=== PATIENT | male | born 1960 | race African-American/Black ===

== ENCOUNTER 2020-02-03 10:13 | Observation (INO) | payer SELFPAY ==
[2020-02-03 11:11] LABS: #Basophils 0.1 thou/uL (0.0-0.2); #Eosinphils 0.3 thou/uL (0.0-0.7); #Lymphocytes 1.6 thou/uL (1.20-3.40); #Monocytes 0.6 thou/uL (0.11-0.59); #Neutrophils 3.2 thou/uL (1.40-6.50); %Basophils 1.1 % (0.0-1.0); %Eosinophils 4.8 % (0.0-10.0); %Lymphocytes 27.6 % (21.0-51.0); %Monocytes 10.4 % (0.0-10.0); %Neutrophils 56.1 % (42.0-75.0); Hemoglobin 16.1 g/dL (14.0-18.0); Mean Corpuscular HGB CONC 34.3 g/dL (32.0-36.0); Mean Corpuscular Volume 87.6 fL (78.0-98.0); Mean Platelet Volume 7.8 fL (7.4-10.4); Platelet Count 279 thou/uL (130-400); RBC Distribution Width 12.9 % (11.5-14.5); Red Blood Cell (RBC) Count 5.36 mill/uL (4.70-6.10); White Blood Cell (WBC) Count 5.7 thou/uL (4.8-10.8)
--- NOTE | 2020-02-03 11:19 | RAD ---
XR Chest 1 View Portable HISTORY: Chest pain COMPARISON: None FINDINGS: The heart size is normal. The lungs are well expanded without focal areas of consolidation, pneumothorax or pleural effusions. IMPRESSION: No radiographic evidence of acute cardiopulmonary process.
--- NOTE | 2020-02-03 11:19 | CT ---
CT BRAIN WITHOUT CONTRAST: HISTORY: Dizziness, altered mental status FINDINGS: No evidence of acute infarct, hemorrhage, midline shift or abnormal extra-axial fluid collections is seen. The ventricular size is appropriate and the basilar cisterns are patent. The bony calvarium is intact. The visualized paranasal sinuses are well aerated. Dural calcifications are seen most prom inent in the tentorium. IMPRESSION: No CT evidence of acute intracranial process.
[2020-02-03 11:32] LABS: ALT (SGPT) 21 U/L (8-55); AST (SGOT) 15 U/L (5-34); Alkaline Phosphatase 94 U/L (40-110); Anion Gap 11 mmol/L (10-20); BUN (Urea Nitrogen) 13 mg/dL (8.4-25.7); Bilirubin, Total 0.5 mg/dL (0.2-1.2); Calc. Creatinine Clearance 0 mL/min (70-130); Calcium 9.8 mg/dL (7.8-10.44); Carbon Dioxide 25 mmol/L (22-29); Chloride 106 mmol/L (98-107); Estimated GFR-MDRD Greater than 90; Globulin 3.8 g/dL (2.4-3.5); Glucose 141 mg/dL (70-105); Potassium 3.6 mmol/L (3.5-5.1); Protein, Total 7.8 g/dL (6.0-8.3); Sodium 138 mmol/L (136-145)
[2020-02-03 12:18] LABS: CK (CPK) 148 U/L (30-200); Lipase 34 U/L (8-78)
--- NOTE | 2020-02-03 12:29 | PDOC.HHP ---
Hospitalist HPI - History of Present Illness Dizziness History of Present Illness: PCP: None The patient is a 59-year-old male with no significant past medical history that presents to the emergency department for the above complaint. The patient reports waking in his usual health this morning, however, after standing he felt dizzy. He says that the room was spinning. He denies feeling like he was going to pass out. He says it felt "like a soto". He reports associated numbness to his bilateral upper extremities. He denies any headache, vision changes, slurred speech or loss of coordination of his extremities. He denies any recent fever/illness or neck stiffness. He says this is never happened to him before. He does not take any NSAIDs or recent antibiotics. He has had no recent URI sym ptoms. He reports that he got onto a bus to come to the emergency department, then he felt like he had some chest pain. He says that the chest pain was located "in the center", described as sharp, intermittent, exacerbated and relieved by nothing. He reports that the bus had the air conditioning on high and he thinks the chest pain was more related to it being cold. He denies any associated heart palpitations, lightheadedness or swelling to lower extremities. Denies any shortness of breath, wheezing. No history of DVT/PE. He denies any illicit drug use. He does state that he has been to the medical clinics in the past, and been told his blood pressure readings have been high, stating that sometimes the SBP is in the 200s. He reports that he is never taken any medications because he could not afford them. He denies any abdominal pain, nausea, vomiting, diarrhea. Denies any melena/hematochezia. He denies any dysuria or hematuria. ED Course: VITAL SIGNS MonFeb 03, 2020 10:16 LOUIE Kathleen Sarah BP: 109/57, MAP: 93, Pulse: 94, Resp: 17, Pain: 7, O2 sat: 98 on (Room Air), Time: 02/03/2020 10:16. VITAL SIGNS MonFeb 03, 2020 11:22 LOUIE Olsen Cheryl BP: 131/56, Pulse: 72, Resp: 18, Temp: 98.3 (Oral), Pain: 5, O2 sat: 99 on (Room Air), Time: 02/03/2020 11:22. Medication administration: sodium chloride 0.9 % intravenous 500 mL IV Fluid Infusion Given 10:56 02/03/2020 Hospitalist ROS - Review of Systems All other systems reviewed; all pertinent +/- noted in HPI/Subj - Medication Medications: None Allergies: No known drug allergies Hospitalist History - Past Medical History Source: patient, RN notes reviewed Cardiac: reports: no pertinent history Pulmonary: reports: no pertinent history ENROLLMENT ELIGIBILITY REPRESENTATIVE: reports: no pertinent history Gastrointestinal: reports: no pertinent history - Past Surgical History Past Surgical History: reports: Appendectomy - Family History Family History: reports: cardiac disorder (Father side of the family), cerebrovascular accident (Father side of the family) - Social History Smoking Status: Former smoker Tobacco Type: cigarettes Alcohol: reports: None Drugs: reports: none Living Situation: Roommate Occupation: Does not work currently Activity level: independent ambulation - Exam General Appearance: NAD, awake alert. negative: ill appearing Eye: PERRL, anicteric sclera ENT: normocephalic atraumatic Neck: supple, symmetric, no JVD Heart: RRR, no murmur, no gallops, no rubs, normal peripheral pulses Respiratory: CTAB, no wheezes, no rales, no ronchi, normal chest expansion, no tachypnea Gastrointestinal: soft, non-tender, no bruit, no guarding, no rigidity, distended Extremities: no cyanosis, no edema Skin: no rashes Neurological: cranial nerve grossly intact, no weakness, no focal deficits Neurological - other findings: modified HINTS unremarkable, NIH 1, BUE sensation, no ataxia Musculoskeletal: normal tone, normal strength Psychiatric: normal affect, A&O x 3 Hospitalist Results - Labs Result Diagrams: 02/03/20 10:25 02/03/20 10:25 Lab results: WBC 5.7 thou/uL (4.8-10.8) 02/03/20 10:25 Hgb 16.1 g/dL (14.0-18.0) 02/03/20 10:25 Hct 47.0 % (42.0-52.0) 02/03/20 10:25 MCV 87.6 fL (78.0-98.0) 02/03/20 10:25 Plt Count 279 thou/uL (130-400) 02/03/20 10:25 Neutrophils % 56.1 % (42.0-75.0) 02/03/20 10:25 Sodium 138 mmol/L (136-145) 02/03/20 10:25 Potassium 3.6 mmol/L (3.5-5.1) 02/03/20 10:25 Chloride 106 mmol/L (98-107) 02/03/20 10:25 Carbon Dioxide 25 mmol/L (22-29) 02/03/20 10:25 BUN 13 mg/dL (8.4-25.7) 02/03/20 10:25 Creatinine 0.82 mg/dL (0.7-1.3) 02/03/20 10:25 Glucose 141 mg/dL (70-105) H 02/03/20 10:25 Calcium 9.8 mg/dL (7.8-10.44) 02/03/20 10:25 Total Bilirubin 0.5 mg/dL (0.2-1.2) 02/03/20 10:25 AST 15 U/L (5-34) 02/03/20 10:25 ALT 21 U/L (8-55) 02/03/20 10:25 Alkaline Phosphatase 94 U/L (40-110) 02/03/20 10:25 Creatine Kinase 148 U/L (30-200) 02/03/20 10:25 Troponin I 0.012 ng/mL (< 0.028) 02/03/20 10:25 B-Natriuretic Peptide Less than 10.0 pg/mL (0-100) 02/03/20 10:25 Serum Total Protein 7.8 g/dL (6.0-8.3) 02/03/20 10:25 Albumin 4.0 g/dL (3.5-5.0) 02/03/20 10:25 Lipase 34 U/L (8-78) 02/03/20 10:25 - EKG Interpretation EKG: Normal sinus rhythm left atrial enlargement pulse 87 IL 194 no STEMI. - Radiology Interpretation Chest x-ray Status: report reviewed by me Additional Comment: IMPRESSION: No radiographic evidence of acute cardiopulmonary process. CT scan - head Status: report reviewed by me Additional Comment: IMPRESSION: No CT evidence of acute intracranial process Hospitalist H&P A/P - Problem (1) Dizziness Code(s): R42 - DIZZINESS AND GIDDINESS Status: Acute (2) Chest pain Code(s): R07.9 - CHEST PAIN, UNSPECIFIED Status: Acute (3) Elevated random blood glucose level Code(s): R73.09 - OTHER ABNORMAL GLUCOSE Status: Acute - Plan Plan: 59/M with no significant PMH presents for dizziness. We will admit to the stroke unit, observation status. Expected length of stay less than 2 midnights. Presented tachycardic HR 94, NL BP, RR, SPO2, afebrile. EKG normal sinus rhythm, no ST elevations. CXR no acute process. CT brain no acute process. troponin 0.012, ck 148, DD less than 0.27, BNP less than 10. #Dizziness Rule out posterior stroke. NIH 1, BUE numbness. Order MRI, CD US, echocardiogram Consult neurology and physical therapy Give aspirin and start statin. Check TSH, folate/B12, mag level, UA. Permissive hypertension. Neuro checks. Orthostatic VS. #Chest pain Atypical. Resolved on arrival. Heart score 2. Give aspirin and start statin. Trend troponins, FLP, TSH, mag level Echocardiogram. N.p.o. at midnight Results to determine further clinical course. #Elevated random blood glucose level Presented BG 141. We will check hemoglobin A1c. Lovenox for DVT prophylaxis. Pepcid for GI prophylaxis. Full code. Discussed the case with Dr. Matthews.
[2020-02-03] MEDS ORDERED: Aspirin Chewable 81 MG TAB ONE (12:47)
[2020-02-03] MEDS ORDERED: Labetalol HCl 100 MG/20 ML VIAL SLOW IVP PRN (12:47)
[2020-02-03] MEDS ORDERED: Enalaprilat Dihydrate 1.25 MG/ML VIAL SLOW IVP PRN (12:47)
[2020-02-03] MEDS ORDERED: Nitroglycerin 0.4 MG TAB (25 Tab Bottle) SL PRN (12:49)
[2020-02-03] MEDS ORDERED: Ondansetron ODT 4 MG TAB PO PRN (12:51)
[2020-02-03] MEDS ORDERED: Acetaminophen 325 MG TAB PO PRN (12:51)
[2020-02-03] MEDS ORDERED: Senokot S 8.6-50 MG TAB PO PRN (12:51)
[2020-02-03] MEDS ORDERED: Calcium Carbonate 500 MG ChewTAB PO PRN (12:51)
[2020-02-03] MEDS ORDERED: Aspirin 325 mg Enteric Coated Tablet PO SCH (13:00)
--- NOTE | 2020-02-03 13:44 | MRI ---
MRI BRAIN WITHOUT CONTRAST: Date: 02/03/2020 HISTORY: Dizziness. TIA. FINDINGS: Correlation is made with CT scan from same date. No restricted diffusion is seen. No evidence of infarct, hemorrhage, midline shift, or abnormal extra -axial fluid collections are noted. Multiple foci of T2 prolongation in the periventricular white mat ter are consistent with chronic small vessel ischemic disease. The visualized paranasal sinuses are w ell aerated. There is fluid in the mastoid air cells bilaterally. IMPRESSION: No evidence of acute intracranial process. POS: BRITTANYA
[2020-02-03 15:19] LABS: Troponin I Less than 0.010 ng/mL (< 0.028)
[2020-02-03 17:42] LABS: Troponin I Less than 0.010 ng/mL (< 0.028)
[2020-02-03 17:56] VITALS: BMI 37.7
[2020-02-03] MEDS: Famotidine 20 MG TAB PO SCH (20:38)
[2020-02-03] MEDS: Atorvastatin Calcium 40 MG TAB PO SCH (20:38)
--- NOTE | 2020-02-03 21:37 | ULT ---
Carotid duplex sonogram HISTORY: TIA. Vascular disease. FINDINGS: Right: Minimal plaque. Color and spectral Doppler evaluation, peak systolic velocity of 56 cm/s, and IC to CC ratio 0.5 suggest no hemodynamically significant stenosis within the extracranial left ICA. Antegrade flow within the vertebral artery. Left: Minimal plaque. Color and spectral Doppler evaluation, peak systolic velocity of 63 cm/s, and I C to CC ratio 0.5 suggest no hemodynamically significant stenosis within the extra cranial left ICA. Antegrade flow within the vertebral artery. IMPRESSION : No evidence of significant stenosis.
[2020-02-04 00:21] LABS: Bacteria/HPF None Seen HPF (None Seen); Bilirubin Negative (Negative); Blood, Urine Negative (Negative); Calcium Oxalate Crystals 3+ HPF (None Seen); Clarity Clear (Clear); Glucose, Urine (Dipstick) Normal (Negative); Ketone, Urine Negative (Negative); Leukocyte Negative Leu/uL (Negative); Nitrite Negative (Negative); Protein, Urine (Dipstick) 20 mg/dL (Neg-Trace); RBC/HPF 0-3 HPF (0-3); Specific Gravity, Urine 1.022 (1.002-1.036); Squamous Epithelial 0-3 HPF (0-3); Urobilinogen Normal mg/dL (Less than 2); WBC/HPF 0-3 HPF (0-3); pH, Urine 5.5 (5.0-9.0)
[2020-02-04 04:40] LABS: #Eosinphils 0.3 thou/uL (0.0-0.7); #Monocytes 0.6 thou/uL (0.11-0.59); #Neutrophils 2.4 thou/uL (1.40-6.50); %Basophils 0.9 % (0.0-1.0); %Eosinophils 6.3 % (0.0-10.0); %Lymphocytes 37.2 % (21.0-51.0); %Monocytes 11.1 % (0.0-10.0); %Neutrophils 44.5 % (42.0-75.0); Hemoglobin 15.2 g/dL (14.0-18.0); Mean Corpuscular HGB CONC 33.3 g/dL (32.0-36.0); Mean Corpuscular Volume 90.1 fL (78.0-98.0); Mean Platelet Volume 7.5 fL (7.4-10.4); Platelet Count 232 thou/uL (130-400); RBC Distribution Width 12.8 % (11.5-14.5); Red Blood Cell (RBC) Count 5.07 mill/uL (4.70-6.10); White Blood Cell (WBC) Count 5.3 thou/uL (4.8-10.8)
[2020-02-04 04:57] LABS: Hemoglobin A1c 5.9 % (4.0-6.0)
[2020-02-04 05:03] LABS: Anion Gap 12 mmol/L (10-20); BUN (Urea Nitrogen) 11 mg/dL (8.4-25.7); Calc. Creatinine Clearance 187 mL/min (70-130); Calcium 9.3 mg/dL (7.8-10.44); Carbon Dioxide 23 mmol/L (22-29); Cardiac Risk 3.3 (Less than 4.5); Chloride 106 mmol/L (98-107); Cholesterol 133 mg/dl (< 200 Desired); Estimated GFR-MDRD Greater than 90; Glucose 109 mg/dL (70-105); HDL Cholesterol 40 mg/dL (>60 Neg Risk); LDL Cholesterol, Calculated 83 mg/dL; Potassium 4.1 mmol/L (3.5-5.1); Sodium 137 mmol/L (136-145); Triglycerides 51 mg/dL (Less than 150)
[2020-02-04 05:26] LABS: Thyroid Stimulating Hormone 0.4761 uIU/mL (0.35-4.94)
--- NOTE | 2020-02-04 07:45 | PDOC.HOSPP ---
- Subjective Encounter Date: 02/04/20 Encounter Time: 08:05 Subjective: Patient seen and examined. No new complaints. No overnight events. Denies any chest pain, heart palpitations, SOB. Denies any abdominal pain, N/V/D. Still endorses intermittent BUE numbness, denies any neck pain, previous injury or weakness. Says he is feeling well today. Discussed his BP and starting new medication. Discussed his HA1C and lifestyle changes. Discussed his lipid panel and dietary control. - Objective Vital Signs & Weight: Vital Signs (12 hours) Temp Pulse Resp BP Pulse Ox 02/04/20 07:25 97.9 F 64 17 175/100 H 99 02/04/20 04:37 97.7 F 59 L 20 151/83 H 98 02/04/20 00:05 80 162/89 H Weight Weight 286 lb I&O: 02/03/20 02/04/20 02/05/20 06:59 06:59 06:59 Intake Total 480 Balance 480 Result Diagrams: 02/04/20 04:18 02/04/20 04:18 Hospitalist ROS - Review of Systems Constitutional: denies: fever, chills Respiratory: denies: cough, shortness of breath, hemoptysis Cardiovascular: denies: chest pain, palpitations, edema, light headedness Gastrointestinal: denies: nausea, vomiting, abdominal pain, diarrhea, constipation Genitourinary: denies: dysuria, hematuria Neurological: reports: numbness (BUE intermittent). denies: weakness, incoordination, change in speech - Medication Medications: Active Medications Generic Name Dose Route Start Last Admin Trade Name Freq PRN Reason Stop Dose Admin Atorvastatin Calcium 40 mg 02/03/20 21:00 02/03/20 20:38 Atorvastatin Calcium 40 Mg Tab PO 40 mg HS CHASE Administration Famotidine 20 mg 02/03/20 21:00 02/03/20 20:38 Famotidine 20 Mg Tab PO 20 mg BID CHASE Administration - Exam General Appearance: NAD, awake alert. negative: ill appearing Eye: PERRL, anicteric sclera ENT: normocephalic atraumatic Neck: supple, symmetric Heart: RRR, no murmur, no gallops, no rubs, normal peripheral pulses Respiratory: CTAB, no wheezes, no rales, no ronchi, normal chest expansion, no tachypnea Gastrointestinal: soft, non-tender, non-distended, no bruit, no guarding, no rigidity Extremities: no cyanosis, no edema Skin: no rashes Neurological: cranial nerve grossly intact, normal sensation to touch, no weakness, no focal deficits Musculoskeletal: normal tone, normal strength Psychiatric: normal affect, A&O x 3 Hosp A/P (1) Dizziness Code(s): R42 - DIZZINESS AND GIDDINESS Status: Acute (2) Chest pain Code(s): R07.9 - CHEST PAIN, UNSPECIFIED Status: Acute (3) HTN (hypertension) Code(s): I10 - ESSENTIAL (PRIMARY) HYPERTENSION Status: Acute (4) Elevated random blood glucose level Code(s): R73.09 - OTHER ABNORMAL GLUCOSE Status: Acute (5) Low blood magnesium level Code(s): R79.0 - ABNORMAL LEVEL OF BLOOD MINERAL Status: Acute (6) Obesity (BMI 30-39.9) Code(s): E66.9 - OBESITY, UNSPECIFIED Status: Chronic - Plan 59/M with no significant PMH presents for dizziness. We will admit to the stroke unit, observation status. Expected length of stay less than 2 midnights. Presented tachycardic HR 94, NL BP, RR, SPO2, afebrile. EKG normal sinus rhythm, no ST elevations. CXR no acute process. CT brain no acute process. troponin 0.012, ck 148, DD less than 0.27, BNP less than 10. #Dizziness Rule out posterior stroke. NIH 0 this morning MRI, CD no acute process Neurology and physical therapy consultations pending. Continue ASA and statin Neuro checks. Orthostatic VS. #Chest pain Atypical. Resolved on arrival. Heart score 2. Troponins flat. Does not appear to be cardiac in nature. Continue aspirin and statin. Echocardiogram pending. HH diet. #HTN BP 175/100 this morning. Reports intermittent BUE numbness, asymptomatic at time assessment. Start procardia XL. diet. #Elevated random blood glucose level Presented BG 141. Hemoglobin A1c 5.9. Starting HH diet, discussed prediabetes and lifestyle management. #Low blood magnesium relative, level 1.8. Replace 2gm Mag IVPB #Obesity BMI 37 Dietary and lifestyle changes. Lovenox for DVT prophylaxis. Pepcid for GI prophylaxis. Full code. Discussed the case with Dr. Matthews.
[2020-02-04] MEDS ORDERED: Magnesium 2 GM/50 ML 2 GM in Premix Bag 1 BAG IVPB SCH (08:00)
[2020-02-04] MEDS: NIFEdipine XL 30 MG TAB PO SCH (08:34)
[2020-02-04] MEDS: Famotidine 20 MG TAB PO SCH ×2 (08:34→22:50)
[2020-02-04] MEDS: Enoxaparin Sodium 40 MG/0.4 ML SYRINGE SC SCH (08:34)
[2020-02-04] MEDS ORDERED: FLU VACC QS2020-21(6MOS UP)/PF 60 MCG/0.5 ML SYRINGE IM ONE (09:00)
[2020-02-04] MEDS ORDERED: Aspirin 325 mg Enteric Coated Tablet PO SCH (09:00)
--- NOTE | 2020-02-04 14:17 | CON ---
NEUROLOGY CONSULTATION DATE OF CONSULTATION: 02/04/2020 REASON FOR CONSULTATION: Dizziness HISTORY OF PRESENT ILLNESS: Mr. Montanez is a 59-year-old male with no significant medical history, presented to the emergency department with complaint of dizziness. Per the patient, he was in his usual self in the morning of 02/03/2020 when he felt as if the room is spinning in front of his eyes and he reported bilateral numbness of the upper extremity. The patient denies any focal numbness, focal paresthesias, nausea, vomiting, headache, chest pain, abdominal pain, recent sick contacts, or recent exposure to COVID. In the emergency room, the systolic breast pressure was in 200s. Per the patient, he has never taken any medication because he could not afford them. He does admit ear pain with fullness occasionally. He does have earwax problem and problems with hearing time to time REVIEW OF SYSTEMS: All systems were reviewed and were negative except the pertinent positives and negatives mentioned in the HPI. ALLERGIES: NO KNOWN DRUG ALLERGIES. MEDICATIONS: None. PAST MEDICAL HISTORY: No significant past medical history. PAST SURGICAL HISTORY: Appendectomy. FAMILY HISTORY: History of coronary artery disease and cerebrovascular accident. SOCIAL HISTORY: The patient does not work. He lives with a roommate. He is a former smoker. Denies alcohol or illegal drug use. Vital Signs & Weight: Vital Signs (12 hours) Temp Pulse Resp BP Pulse Ox 02/04/20 07:25 97.9 F 64 17 175/100 H 99 02/04/20 04:37 97.7 F 59 L 20 151/83 H 98 02/04/20 00:05 80 162/89 H Weight Weight 286 lb I&O: 02/03/20 02/04/20 02/05/20 06:59 06:59 06:59 Intake Total 480 Balance 480 Active Medications Generic Name Dose Route Start Last Admin Trade Name Freq PRN Reason Stop Dose Admin Atorvastatin Calcium 40 mg 02/03/20 21:00 02/03/20 20:38 Atorvastatin Calcium 40 Mg Tab PO 40 mg HS CHASE Administration Famotidine 20 mg 02/03/20 21:00 02/03/20 20:38 Famotidine 20 Mg Tab PO 20 mg BID CHASE Administration PHYSICAL EXAMINATION: General Appearance: NAD, awake alert. negative: ill appearing Eye: PERRL, anicteric sclera ENT: normocephalic atraumatic Neck: supple, symmetric Heart: RRR, no murmur, no gallops, no rubs, normal peripheral pulses Respiratory: CTAB, no wheezes, no rales, no ronchi, normal chest expansion, no tachypnea Gastrointestinal: soft, non-tender, non-distended, no bruit, no guarding, no rigidity Extremities: no cyanosis, no edema Skin: no rashes Neurological: Mental status; the patient is alert and oriented to person, place, and time. Recent and remote memory intact. Speech is clear. Motor; muscle tone and bulk are normal, strength 5/5 bilaterally. Sensory; intact. Cerebellar; finger-nose testing intact. Cranial nerves 2 through 12 intact. Gait deferred due to the patient's safety reasons. DATA REVIEWED: I reviewed the labs, which show hyperglycemia of 141. Head CT was negative for acute intracranial pathology. Chest x-ray was also unremarkable. ASSESSMENT AND PLAN: Hosp A/P (1) Dizziness Code(s): R42 - DIZZINESS AND GIDDINESS Status: Acute (2) Chest pain Code(s): R07.9 - CHEST PAIN, UNSPECIFIED Status: Acute (3) HTN (hypertension) Code(s): I10 - ESSENTIAL (PRIMARY) HYPERTENSION Status: Acute (4) Elevated random blood glucose level Code(s): R73.09 - OTHER ABNORMAL GLUCOSE Status: Acute (5) Low blood magnesium level Code(s): R79.0 - ABNORMAL LEVEL OF BLOOD MINERAL Status: Acute (6) Obesity (BMI 30-39.9) Code(s): E66.9 - OBESITY, UNSPECIFIED Status: Chronic Mr. Montanez is a 59-year-old male with no significant past medical history, presented with an episode of dizziness. Neurology consulted to rule out posterior circulation transient ischemic attack versus stroke. Dizziness most likely secondary to hypertensive emergency hypertensive. MRI of the brain reviewed, which was negative for acute intracranial pathology. Continue aspirin and high-intensity statin for secondary stroke prevention. Strict control of blood pressure and blood glucose. Neuro checks every 4 hours. Continue evaluation of atypical chest pain. Work up per Cardiology Team. Continue medical management per Cardiology team. PT/OT/speech. We will continue to follow. EEG to rule out cortical irritability completed. We will follow up on the results. The patient's dizziness has improved at this time. . Consider ENT followup as outpatient. We will continue to follow. Thank you for the consult. Job ID: [id number] MTDD
[2020-02-04 15:38] LABS: SARS-CoV-2 MS2 Positive; SARS-CoV-2 N Gene Negative; SARS-CoV-2 S Gene Negative; SARS-CoV-2 by NAA Not Detected (NotDetected); SARS-CoV-2 orf1ab Negative
--- NOTE | 2020-02-04 17:00 | PDOC.EEG ---
Neurology EEG Report - Report Report: This EEG was performed using 24 channel [employer] video digital EEG machine with 24 disc electrodes. This was an extended 2 hours 4 minutes of EEG recording. Digital analysis of the EEG was done for Kyle and seizure detection which revealed no abnormalities. Background: The posterior background rhythm is 9-10 Hz. The background rhythm attenuates with eye opening and enhances with eye closure. Photic stimulation: No response seen with photic stimulation. Hyperventilation: Not performed. Sleep: No stage change was observed. EEG diagnosis: Normal awake EEG.
[2020-02-04] MEDS: Atorvastatin Calcium 40 MG TAB PO SCH (22:50)
[2020-02-05 05:26] LABS: Anion Gap 12 mmol/L (10-20); BUN (Urea Nitrogen) 13 mg/dL (8.4-25.7); Calc. Creatinine Clearance 176 mL/min (70-130); Calcium 9.5 mg/dL (7.8-10.44); Carbon Dioxide 26 mmol/L (22-29); Chloride 103 mmol/L (98-107); Estimated GFR-MDRD Greater than 90; Glucose 103 mg/dL (70-105); Potassium 4.9 mmol/L (3.5-5.1); Sodium 136 mmol/L (136-145)
[2020-02-05 05:34] LABS: Band 11 % (5-11); Eosinophils 4 % (0-10); Hemoglobin 15.5 g/dL (14.0-18.0); Lymphocytes 29 % (21-51); MDiff Complete? YES; Mean Corpuscular HGB CONC 32.6 g/dL (32.0-36.0); Mean Corpuscular Hemoglobin 29.3 pg (27.0-31.0); Mean Platelet Volume 8.1 fL (7.4-10.4); Monocytes 15 % (0-10); Myelocyte 1 % (0-0); Neutrophil 40 % (42-75); Platelet Count 205 thou/uL (130-400); Platelet Morphology Comment Appears Adequate; RBC Distribution Width 12.5 % (11.5-14.5); Red Blood Cell (RBC) Count 5.27 mill/uL (4.70-6.10); White Blood Cell (WBC) Count 5.2 thou/uL (4.8-10.8)
[2020-02-05] MEDS ORDERED: Aspirin 325 mg Enteric Coated Tablet PO SCH (07:43)
--- NOTE | 2020-02-05 08:54 | PDOC.HOSPP ---
- Subjective Encounter Date: 02/05/20 Encounter Time: 08:50 Subjective: Patient seen and examined. No new complaints. No overnight events. Patient feels good. Reports living situation at home with roomate is difficult. He wants help finding contacts for [facility] or other shelters. He has been to [facility] in the past and says "he can't go there again". I told him I would speak with case management about options that we might be able to provide. We discussed his blood pressure medications, prediabetes and cholesterol panel, along with neurology results. He denies any chest pain, heart palpitations, SOB, abdominal pain, vomiting or changes in bowel habits. Denies fever or chills. - Objective Vital Signs & Weight: Vital Signs (12 hours) Temp Pulse Resp BP Pulse Ox 02/05/20 03:28 97.6 F 67 20 143/96 H 97 02/05/20 03:26 98 Weight Admit Weight 286 lb Weight 286 lb I&O: 02/04/20 02/05/20 02/06/20 06:59 06:59 06:59 Intake Total 720 Output Total 425 Balance 295 Result Diagrams: 02/05/20 04:43 02/05/20 04:43 Hospitalist ROS - Review of Systems Constitutional: denies: fever, chills Respiratory: denies: cough, shortness of breath, hemoptysis Cardiovascular: denies: chest pain, palpitations, edema, light headedness Gastrointestinal: denies: nausea, vomiting, abdominal pain Genitourinary: denies: dysuria, incontinence Neurological: denies: weakness, numbness, change in speech, confusion All other systems reviewed; all pertinent +/- noted in HPI/Subj - Medication Medications: Active Medications Generic Name Dose Route Start Last Admin Trade Name Freq PRN Reason Stop Dose Admin Acetaminophen 650 mg 02/03/20 12:51 02/04/20 17:29 Acetaminophen 325 Mg Tab PO 650 mg Q4H PRN Administration Headache/Fever/Mild Pain (1-3) Atorvastatin Calcium 40 mg 02/03/20 21:00 02/04/20 22:50 Atorvastatin Calcium 40 Mg Tab PO 40 mg HS CHASE Administration Enoxaparin Sodium 40 mg 02/04/20 09:00 02/04/20 08:34 Enoxaparin Sodium 40 Mg/0.4 Ml Syringe SC 40 mg 0900 CHASE Administration Famotidine 20 mg 02/03/20 21:00 02/04/20 22:50 Famotidine 20 Mg Tab PO 20 mg BID CHASE Administration Nifedipine 30 mg 02/04/20 09:00 02/04/20 08:34 Nifedipine Xl 30 Mg Tab PO 30 mg DAILY CHASE Administration Sodium Chloride 10 ml 02/03/20 12:47 02/04/20 08:34 Flush - Normal Saline 10 Ml Syringe IVF 10 ml PRN PRN Administration Saline Flush - Exam General Appearance: NAD, awake alert. negative: ill appearing Eye: PERRL, anicteric sclera ENT: normocephalic atraumatic Neck: supple, symmetric Heart: RRR, no murmur, no gallops, no rubs, normal peripheral pulses Respiratory: CTAB, no wheezes, no rales, no ronchi, normal chest expansion, no tachypnea Gastrointestinal: soft, non-tender, non-distended, normal bowel sounds, no guarding, no rigidity Extremities: no cyanosis, no edema Skin: no rashes Neurological: cranial nerve grossly intact, no focal deficits Musculoskeletal: normal tone, normal strength Psychiatric: normal affect, A&O x 3 Hosp A/P (1) Dizziness Code(s): R42 - DIZZINESS AND GIDDINESS Status: Acute (2) Chest pain Code(s): R07.9 - CHEST PAIN, UNSPECIFIED Status: Acute (3) Elevated random blood glucose level Code(s): R73.09 - OTHER ABNORMAL GLUCOSE Status: Acute (4) HTN (hypertension) Code(s): I10 - ESSENTIAL (PRIMARY) HYPERTENSION Status: Acute (5) Dyslipidemia Code(s): E78.5 - HYPERLIPIDEMIA, UNSPECIFIED Status: Acute (6) Low blood magnesium level Code(s): R79.0 - ABNORMAL LEVEL OF BLOOD MINERAL Status: Acute (7) Obesity (BMI 30-39.9) Code(s): E66.9 - OBESITY, UNSPECIFIED Status: Chronic - Plan 59/M with no significant PMH presents for dizziness. We will admit to the stroke unit, observation status. Expected length of stay less than 2 midnights. Presented tachycardic HR 94, NL BP, RR, SPO2, afebrile. EKG normal sinus rhythm, no ST elevations. CXR no acute process. CT brain no acute process. troponin 0.012, ck 148, DD less than 0.27, BNP less than 10. #Dizziness Appreciate neurology recs. Follow up outpatient ENT. #Chest pain Atypical. Cardiac etiology ruled out. ASCVD risk score 11.0% 10 years, recommend mod statin, Stage II HTN 2 meds, ASA 81mg, and lifestyle modifications. Continue CCB, start lisinopril, change ASA to 81mg. Discussed low fat, high fiber, plant based diet, lean meats. #HTN BP 143/96 this morning. Continue procardia XL and add lisinopril. Discussed [facility] and [facility] $4 list for medications. #Dyslipidemia ASCVD risk score 11.0%, recommend moderate intensity statin Change lipitor to 10mg. #Elevated random blood glucose level Hemoglobin A1c 5.9. Discussed prediabetes and lifestyle management. #Low blood magnesium relative, level 1.8. Replace 2gm Mag IVPB #Obesity BMI 37 Dietary and lifestyle changes. Lovenox for DVT prophylaxis. Pepcid for GI prophylaxis. Full code. Discussed the case with Dr. Matthews.
[2020-02-05 08:55] VITALS: TEMP 97.9
[2020-02-05] MEDS ORDERED: Atorvastatin Calcium 20 MG TAB PO SCH (08:59)
[2020-02-05] MEDS ORDERED: Lisinopril 5 MG TAB PO SCH (09:00)
[2020-02-05] MEDS ORDERED: Aspirin 81 mg Enteric Coated Tablet PO SCH (09:00)
[2020-02-05] MEDS: Enoxaparin Sodium 40 MG/0.4 ML SYRINGE SC SCH (09:00)
[2020-02-05] MEDS: Famotidine 20 MG TAB PO SCH (09:02)
[2020-02-05] MEDS: NIFEdipine XL 30 MG TAB PO SCH ×2 (09:02→09:03)
[2020-02-05] MEDS ORDERED: Atorvastatin Calcium 40 MG TAB PO SCH (09:03)
--- NOTE | 2020-02-05 11:19 | PDOC.DS.DS ---
Provider - Provider Date of Admission: 02/03/2020 Date of Discharge: 02/05/20 Admitting Provider: Jc Matthews MD Consultations: Neurology Primary Care Physician: NO PCP PROVIDER Course - Hospital Course Hospital Course: The patient is a 59-year-old male with no significant past medical history that presented to the hospital for dizziness and chest pain. The patient was admitted to the telemetry floor to rule out posterior stroke and ACS. The patient was given aspirin and started on a statin. His troponins were negative x3. Echocardiogram showed an ejection fraction of 55 to 60% with normal left ventricular size, mild mitral regurgitation and mild tricuspid regurgitation. The patient remained asymptomatic throughout his stay. The patient had CT brain, MRI brain and carotid Doppler that were negative for any acute process. Neurology was consulted and ordered an EEG which was normal. Neurology recommended follow-up with ENT outpatient. Patient did have elevated blood pressure readings at the beginning of his stay, so he was started on Procardia XL with improved blood pressure control. The patient's calculated ASCVD risk s core was 11%, recommendation to start moderate statin therapy. The patient has high blood pressure stage II, recommendation to start on 2 antihypertensive medications. Recommendation for baby aspirin. Recommendation for lifestyle changes. The patient will follow up with his primary care provider. Pertinent Studies: CT brain: No CT evidence of acute intracranial process MRI brain: No evidence of acute intracranial process Carotid Doppler: No evidence of significant stenosis Echocardiogram: EF 55-60%, mild MR and TR. EEG: Normal Resuscitation Status: 02/03/20 12:51 Resuscitation Status Routine Co-Sign Provider: Resuscitation Status: FULL: Full Resuscitation Discussed with: Patient - Labs Lab Results: 02/05/20 04:43 02/05/20 04:43 Abnormal Lab Results - Last 48 hrs 02/03/20 10:25: Globulin 3.8 H, Albumin/Globulin Ratio 1.1 L 02/03/20 22:00: Calcium Oxalate Crystal 3+ A 02/04/20 04:18: Monocytes % 11.1 H, Monocytes # 0.6 H 02/05/20 04:43: Neutrophils % (Manual) 40 L, Monocytes % (Manual) 15 H, Myelocytes % 1 H - Physical Exam Vitals: Vital Signs (12 hours) Temp Pulse Resp BP Pulse Ox 02/05/20 08:45 97.9 F 71 16 129/96 H 97 02/05/20 03:28 97.6 F 67 20 143/96 H 97 02/05/20 03:26 98 Weight Admit Weight 286 lb Weight 286 lb Physical Exam: The patient was seen and examined on the day of discharge. GCS 15, S1 and S2 appreciated, lungs clear to auscultation. Problem - Problem (1) Dizziness Code(s): R42 - DIZZINESS AND GIDDINESS Status: Acute (2) Chest pain Code(s): R07.9 - CHEST PAIN, UNSPECIFIED Status: Acute (3) Elevated random blood glucose level Code(s): R73.09 - OTHER ABNORMAL GLUCOSE Status: Acute (4) HTN (hypertension) Code(s): I10 - ESSENTIAL (PRIMARY) HYPERTENSION Status: Acute (5) Dyslipidemia Code(s): E78.5 - HYPERLIPIDEMIA, UNSPECIFIED Status: Acute (6) Low blood magnesium level Code(s): R79.0 - ABNORMAL LEVEL OF BLOOD MINERAL Status: Acute (7) Obesity (BMI 30-39.9) Code(s): E66.9 - OBESITY, UNSPECIFIED Status: Chronic Plan - Discharge Medications Allergies: Penicillins Allergy (Severe, Verified 02/03/20 17:15) Nausea DEVELOPS NAUSEA AND VOMITING. shrimp Allergy (Severe, Verified 02/03/20 17:14) Nausea DEVELOPS NAUSEA AND VOMITING. - Discharge Instructions Discharge Instructions:: Follow up with your PCP in 1 week. Get labwork, BMP in 1 week, PCP to follow up with results. Check blood pressure daily and bring log of results to your PCP appointment. Activity:: Activity as Tolerated Nourishment:: Heart Healthy Diet, Low Sodium Diet - Follow up Plan Referrals: PROVIDER,NO PCP [Primary Care Provider] - 7 Days (For medical management and follow up labs.) Sean Martinez MD [Active] - 7 Days (For dizziness) Disposition: HOME
[2020-02-05 11:54] VITALS: BP 138/71
--- NOTE | 2020-02-05 16:02 | DIS ---
DATE OF ADMISSION: 02/03/2020 DATE OF DISCHARGE: 02/05/2020 PRIMARY CARE PHYSICIAN: None. DIAGNOSES AT DISCHARGE: 1. Dizziness. 2. Chest pain, atypical. 3. Prediabetes. 4. Dyslipidemia. 5. Hypertension. 6. COVID test negative. 7. Condition stable. PHYSICAL EXAMINATION: I examined the patient on the day of discharge, along with Dr. Vaughn. VITAL SIGNS: Stable. HEART: Denies any chest pain, heart palpitation, shortness of breath focal motor weakness or numbness to his extremities. S1, S2 auscultated. LUNGS: Clear bilaterally. CONSULTATIONS: Neurology, Dr. Shereen Lilly. HOSPITAL COURSE: The patient is a 59-year-old male with no significant past medical history who presented to the emergency department for dizziness and chest pain. The patient presented mildly tachycardic with normal blood pressure, respirations, and was afebrile. EKG was normal sinus rhythm, no ST elevations. Chest x-ray negative for any acute process. The patient underwent workup for stroke rule out. CT brain was negative for any acute process. MRI was negative for any acute process. Carotid ultrasound was negative for any acute process, no significant stenosis. Echocardiogram had ejection fraction 55-60%, mild MR and TR. EEG was normal. The patient was cleared by Neurology and recommendation was to follow up with ENT outpatient. The patient's troponins were trended and were flat reading 0.012, 0.011, 0.010. BNP was less than 10. D-dimer was less than 0.27. Hemoglobin A1c was 5.9 with blood sugars averaging low 100s. Fasting lipid panel had cholesterol 133, triglycerides 51, LDL 83, HDL 40. The patient's ASCVD score was 11%, recommendations to start moderate intensity statin and baby aspirin. The patient has stage II hypertension, recommendations for two antihypertensive medications. The patient was started on Procardia with improvement in his blood pressure. Lisinopril was added as a second agent. The patient is to be discharged home on amlodipine, lisinopril along with atorvastatin and baby aspirin. MEDICATIONS AT DISCHARGE: 1. Amlodipine 10 mg p.o. daily. 2. Aspirin 81 mg p.o. daily. 3. Atorvastatin 10 mg p.o. daily. 4. Lisinopril 5 mg p.o. daily. FOLLOWUP: PCP in 1 week and ENT, Dr. Sean Estrada in 1 week. DIET: Heart healthy. ACTIVITY: As tolerated. DISPOSITION: Home. TIME SPENT ON DISCHARGE: Approximately 20 minutes. Job ID: [id number] [id number]
[2020-02-05] MEDS ORDERED: Atorvastatin Calcium 10 MG TAB PO SCH (21:00)
== END 2020-02-05 13:40 | disposition home or self-care (01) ==
LOC: ERS 10:13 → INTOOBSV 12:18 → ERHOLD 12:18 → 2NO 12:31
PROVIDERS: ADMIT Student in an Organized Health Care Education/Training Program; ATTEND Student in an Organized Health Care Education/Training Program
DX: R07.89 Other chest pain (principal); R42 Dizziness and giddiness; R73.03 Prediabetes; E78.5 Hyperlipidemia, unspecified; I10 Essential (primary) hypertension; R79.0 Abnormal level of blood mineral; E66.9 Obesity, unspecified; Z68.37 Body mass index [BMI] 37.0-37.9, adult; Z87.891 Personal history of nicotine dependence; Z88.0 Allergy status to penicillin; Z91.013 Allergy to seafood; Z20.828 Contact with and (suspected) exposure to other viral communicable diseases
CPT/HCPCS: 36415; 70450; 70551; 71045; 80048; 80053; 80061; 81001; 82550; 82607; 82746; 83036; 83690; 83735; 83880; 84443; 84484; 85025; 85379; 87635; 93005; 93010; 93306; 93880; 94760; 95712; 95819; 95957; 96372; 96374; G0378; J1650; J3475; U0003